=== PATIENT | female | born 1935 | race Caucasian/White ===

== ENCOUNTER 2017-06-26 18:14 | Emergency (ER) | payer BC ==
[~2017-06-26 18:14] MED LIST: OMEP40CA37 PO
--- NOTE | 2017-06-26 18:21 | NUR ---
CALLED TO TRIAGE,NO ANSWER
--- NOTE | 2017-06-26 19:00 | NUR ---
PT BIB SELF, C/O COUGH X3 WEEKS AND WORSENING SOB OVER THE LAST FEW DAYS. PT REPORTS SHE FEELS LIKE SHE CANNOT COUGH HARD ENOUGH TO CLEAR THE SPUTUM. WHEN COUGH IS PRODUCTIVE, SPUTUM IS WHITE. RESP APPEARS EVEN UNLABORED. SKIN WARM DRY. ALSO C/O MODERATE BACK PAIN. AMBULATORY STEADY GAIT. IN ER BED 12 IN NO ACUTE DISTRESS.
--- NOTE | 2017-06-26 19:10 | NUR ---
Viviana castellanos in [facility] - 06/26/17 at 1910 by ALIZA REPORT STEVE FROM SUNDAR HUFFMAN FOR [facility].
--- NOTE | 2017-06-26 19:10 | NUR ---
REPORT REC'D FROM SUNDAR HUFFMAN FOR [facility].
--- NOTE | 2017-06-26 19:29 | NUR ---
Brent VELAZQUEZ, [facility]- AT THE BEDSIDE SPEAKING TO THE PT.
--- NOTE | 2017-06-26 19:59 | NUR ---
[employer] AID INSTRUCTOR IS AT THE BEDSIDE FOR BLOOD DRAW.
[2017-06-26] MEDS ORDERED: ALBUTEROL FS 2.5 MG/3 ML VIAL.NEB NEB ONE (20:00)
[2017-06-26] MEDS ORDERED: ALBUTEROL FS 2.5 MG/3 ML VIAL.NEB ONE (20:02)
[2017-06-26 20:04] LABS: BASOPHILS % (AUTO) 0.6 % (0.0-2.0); EOSINOPHILS % (AUTO) 4.4 % (0.0-6.0); HEMATOCRIT 34 % (33-45); HEMOGLOBIN 11.8 g/dL (11.5-14.8); LYMPHOCYTES # (AUTO) 1.1 /CMM (0.8-4.8); LYMPHOCYTES % (AUTO) 19.1 % (20.0-44.0); MEAN CORPUSCULAR HGB CONC 34 g/dl (31.0-36.0); MEAN CORPUSCULAR VOLUME 93 fL (82-100); MONOCYTES # (AUTO) 0.3 /CMM (0.1-1.30); MONOCYTES % (AUTO) 5.5 % (2.0-12.0); NEUTROPHILS # (AUTO) 4.2 /CMM (1.8-8.9); NEUTROPHILS % (AUTO) 70.4 % (43.0-81.0); PLATELET COUNT (AUTO) 158 /CMM (150-450); RDW COEFFICIENT OF VARIATION 14.2 (11.5-15.0); RED BLOOD CELL COUNT(AUTO) 3.72 MIL/uL (4.0-5.2); WHITE BLOOD COUNT (AUTO) 5.9 K/uL (4.3-11.0)
[2017-06-26 20:16] LABS: CARBON DIOXIDE 28 mmol/L (21-32); CHLORIDE 106 mmol/L (98-107); CREATININE 0.7 mg/dL (0.6-1.3); GLUCOSE 99 mg/dL (74-106); POTASSIUM 4.1 mmol/L (3.5-5.1); SODIUM SERUM 141 mmol/L (136-145); UREA NITROGEN, BLOOD 24 mg/dL (7-18)
[2017-06-26 20:20] LABS: INR 0.94 (0.85-1.15)
[2017-06-26 20:25] LABS: TROPONIN I < 0.017 ng/mL (0.00-0.056)
--- NOTE | 2017-06-26 21:35 | NUR ---
Patient discharged to home in stable condition. Written and verbal after care instructions given. Patient verbalizes understanding of instruction AND RX. PT AMBULATED OUT WITH A STEADY GAIT. VSS. PT'S SON IS PICKING PT UP.
[2017-06-26 21:48] VITALS: BP 105/68
== END 2017-06-26 21:49 | disposition home or self-care (01) ==
LOC: ER 18:16
DX: H61.22 Impacted cerumen, left ear (principal); J40 Bronchitis, not specified as acute or chronic; H91.92 Unspecified hearing loss, left ear; Z88.0 Allergy status to penicillin
CPT/HCPCS: 36415; 69209; 71045; 80048; 84484; 85025; 85378; 85730; 93005; 94640; 99285; A4606; Z7610

== ENCOUNTER 2022-03-26 15:43 | Emergency (ER) | payer BC ==
[~2022-03-26] VITALS: Ht 154.9 cm; Wt 51.3 kg
[~2022-03-26 15:43] MED LIST changes: +OMEP40CA21 PO; -OMEP40CA37 PO
--- NOTE | 2022-03-26 16:30 | NUR ---
BIBSON C/O LEFT UPPER EXTREMITY SWELLING, CAST IN PLACE FOR WRIST FRACTURE. AMBULATORY, PLACED IN BED, IN PAIN 10/10 PS
[2022-03-26] MEDS ORDERED: HYDROCODONE/APAP 5/325MG TABLET ONE (17:08)
--- NOTE | 2022-03-26 17:15 | NUR ---
DOP. U/S TECH AT BEDSIDE.
[2022-03-26] MEDS ORDERED: HYDROCODONE/APAP 5/325MG TABLET PO ONE (17:30)
[2022-03-26] MEDS ORDERED: IBUP-1953 PO (19:03)
--- NOTE | 2022-03-26 19:15 | NUR ---
Patient discharged to home in stable condition. Written and verbal after care instructions given. Patient verbalizes understanding of instruction.
[2022-03-26 20:25] VITALS: BP 125/75
== END 2022-03-26 19:15 | disposition home or self-care (01) ==
LOC: ER 15:50
DX: S62.102D Fracture of unspecified carpal bone, left wrist, subsequent encounter for fracture with routine healing (principal); M70.22 Olecranon bursitis, left elbow; M79.602 Pain in left arm; I49.9 Cardiac arrhythmia, unspecified; Z88.0 Allergy status to penicillin; Z79.899 Other long term (current) drug therapy; X58.XXXD Exposure to other specified factors, subsequent encounter; Y93.89 Activity, other specified
CPT/HCPCS: 93971-TC

== ENCOUNTER 2023-04-15 17:52 | Emergency (ER) | payer BC ==
[~2023-04-15] VITALS: Ht 152.4 cm; Wt 45.8 kg
[~2023-04-15 17:52] MED LIST changes: +IBUP-1953 PO
[2023-04-15 19:39] VITALS: BP 105/71; TEMP 98.4; O2SAT 100
== END 2023-04-15 19:39 | disposition home or self-care (01) ==
LOC: ER 17:57
DX: M54.2 Cervicalgia (principal); R07.2 Precordial pain; Z88.0 Allergy status to penicillin
CPT/HCPCS: 71045-TC; 72040-TC

== ENCOUNTER 2024-02-25 15:12 | Inpatient (IN) | payer BC ==
[~2024-02-25] VITALS: Ht 152.4 cm; Wt 45.4 kg
[2024-02-25 15:52] LABS: BASOPHILS % (AUTO) 0.3 % (0.0-2.0); EOSINOPHILS # (AUTO) 0.3 K/uL (0.0-0.7); EOSINOPHILS % (AUTO) 3.9 % (0.0-6.0); HEMATOCRIT 33 % (33-45); HEMOGLOBIN 11.1 g/dL (11.5-14.8); LYMPHOCYTES # (AUTO) 0.4 K/uL (0.8-4.8); LYMPHOCYTES % (AUTO) 4.3 % (20.0-44.0); MEAN CORPUSCULAR HEMOGLOBIN 32 PG (26.0-33.0); MEAN CORPUSCULAR HGB CONC 33 g/dl (31.0-36.0); MEAN CORPUSCULAR VOLUME 95 fL (82-100); MONOCYTES # (AUTO) 0.7 K/uL (0.1-1.30); MONOCYTES % (AUTO) 7.9 % (2.0-12.0); NEUTROPHILS # (AUTO) 6.9 K/uL (1.8-8.9); NEUTROPHILS % (AUTO) 83.6 % (43.0-81.0); PLATELET COUNT (AUTO) 113 K/uL (150-450); RED CELL DISTRIBUTION WIDTH 14.7 % (11.5-15.0); WHITE BLOOD COUNT (AUTO) 8.3 K/uL (4.3-11.0)
[2024-02-25 16:13] LABS: INR 0.99 (0.91-1.10); PARTIAL THROMBOPLASTIN TIME 27.6 SEC (24.3-34.3); PROTHROMBIN TIME 10.5 SECS (9.2-11.1)
[2024-02-25 16:28] LABS: CALCIUM, SERUM 9.2 mg/dL (8.5-10.1); CARBON DIOXIDE 29 mmol/L (21-32); CHLORIDE 109 mmol/L (98-107); CREATININE 0.8 mg/dL (0.6-1.3); GLUCOSE 111 mg/dL (74-106); POTASSIUM 3.9 mmol/L (3.5-5.1); SODIUM SERUM 145 mmol/L (136-145); UREA NITROGEN, BLOOD 22 mg/dL (7-18)
[2024-02-25 16:35] LABS: ALANINE AMINOTRANSFERASE 30 U/L (12-78); ALBUMIN 3.4 g/dL (3.4-5.0); ALKALINE PHOSPHATASE 72 U/L (46-116); ASPARTATE AMINOTRANSFERASE 37 U/L (15-37); BILIRUBIN,DIRECT 0.2 mg/dL (0.0-0.2); BILIRUBIN,TOTAL 0.8 mg/dL (0.2-1.0); TOTAL PROTEIN, SERUM 6.3 g/dL (6.4-8.2)
[2024-02-25] MEDS ORDERED: METO25TA20 PO (17:23)
[2024-02-25] MEDS ORDERED: ONDANSETRON HCL/PF 4 MG/2 ML VIAL IVP PRN (17:30)
[2024-02-25] MEDS ORDERED: hydrALAZINE HCL IV 20 MG VIAL IV PRN (17:30)
[2024-02-25 20:00] VITALS: BP 117/75; TEMP 97.6; O2SAT 95
[2024-02-25 20:30] VITALS: BP 117/75; TEMP 97.6; O2SAT 95
[2024-02-26] MEDS: MORPHINE SULFATE INJ 2 MG/ML DISP.SYRIN IV PRN (05:44)
[2024-02-26 06:55] LABS: BASOPHILS % (AUTO) 0.4 % (0.0-2.0); EOSINOPHILS # (AUTO) 0.7 K/uL (0.0-0.7); HEMATOCRIT 31 % (33-45); HEMOGLOBIN 10.3 g/dL (11.5-14.8); LYMPHOCYTES # (AUTO) 0.6 K/uL (0.8-4.8); LYMPHOCYTES % (AUTO) 8.8 % (20.0-44.0); MEAN CORPUSCULAR HEMOGLOBIN 31 PG (26.0-33.0); MEAN CORPUSCULAR HGB CONC 34 g/dl (31.0-36.0); MEAN CORPUSCULAR VOLUME 93 fL (82-100); MONOCYTES # (AUTO) 0.5 K/uL (0.1-1.30); MONOCYTES % (AUTO) 8.2 % (2.0-12.0); NEUTROPHILS # (AUTO) 4.6 K/uL (1.8-8.9); NEUTROPHILS % (AUTO) 71.6 % (43.0-81.0); PLATELET COUNT (AUTO) 116 K/uL (150-450); RED BLOOD CELL COUNT(AUTO) 3.28 MIL/uL (4.0-5.2); RED CELL DISTRIBUTION WIDTH 14.5 % (11.5-15.0); WHITE BLOOD COUNT (AUTO) 6.5 K/uL (4.3-11.0)
[2024-02-26 07:00] VITALS: BP 107/68; TEMP 97.5; O2SAT 98
[2024-02-26 07:14] LABS: ALANINE AMINOTRANSFERASE 27 U/L (12-78); ALBUMIN 2.9 g/dL (3.4-5.0); ALKALINE PHOSPHATASE 66 U/L (46-116); ASPARTATE AMINOTRANSFERASE 31 U/L (15-37); BILIRUBIN,TOTAL 0.7 mg/dL (0.2-1.0); CALCIUM, SERUM 8.4 mg/dL (8.5-10.1); CARBON DIOXIDE 28 mmol/L (21-32); CHLORIDE 111 mmol/L (98-107); CREATININE 0.7 mg/dL (0.6-1.3); GLUCOSE 90 mg/dL (74-106); MAGNESIUM 2.2 mg/dL (1.8-2.4); PHOSPHORUS 3.7 mg/dL (2.5-4.9); POTASSIUM 3.9 mmol/L (3.5-5.1); SODIUM SERUM 145 mmol/L (136-145); TOTAL PROTEIN, SERUM 5.7 g/dL (6.4-8.2); UREA NITROGEN, BLOOD 21 mg/dL (7-18)
[2024-02-26] MEDS: IV NS 0.9% 1,000 ML IV PRN (08:39)
[2024-02-26 09:43] LABS: THYROID STIMULATING HORMONE 3.56 uIU/mL (0.358-3.74)
[2024-02-26] MEDS ORDERED: VANCOMYCIN 1 GM VIAL ONE (14:31)
[2024-02-26] MEDS ORDERED: ANESTHESIA TRAY IN PYXIS 1 EA TRAY MC ONE (14:31)
[2024-02-26] MEDS ORDERED: BUPIVACAINE 0.5 % PF 150 MG/30 ML VIAL ONE (14:31)
[2024-02-26] MEDS ORDERED: POLYMYXIN B SULFATE 0 UNITS ONE (14:31)
[2024-02-26] MEDS ORDERED: BUPIVACAINE 0.25% 75 MG/30 ML VIAL ONE (14:32)
[2024-02-26] MEDS ORDERED: CELLULOSE,OXIDIZED 1 EA PACK MC ONE (14:32)
[2024-02-26 15:44] VITALS: BP 114/69; TEMP 98.1; O2SAT 96
[2024-02-26] MEDS ORDERED: TRANEXAMIC ACID 1,000 MG/10 ML VIAL ONE (15:52)
[2024-02-26] MEDS ORDERED: CLINDAMYCIN 900 MG/6 ML VIAL ONE (15:52)
[2024-02-26 16:00] VITALS: BP 114/69; TEMP 98.1; O2SAT 96
[2024-02-26] MEDS ORDERED: FENTANYL PF 100MCG/2ML AMPUL ONE (16:00)
[2024-02-26 20:00] VITALS: BP 91/57; TEMP 97.6; O2SAT 98
[2024-02-26] MEDS ORDERED: HEPARIN SODIUM, PORCINE 5000 UNITS/1 ML VIAL SQ SCH (21:00)
[2024-02-26] MEDS: CLINDAMYCIN 900 MG in IV D5W 50 ML IV SCH (21:23)
[2024-02-27 07:30] VITALS: BP 112/73; TEMP 98.2; O2SAT 100
[2024-02-27] MEDS: ENOXAPARIN SODIUM 40 MG/0.4 ML DISP.SYRIN SQ SCH (08:59)
[2024-02-27 10:23] LABS: BASOPHILS % (AUTO) 0.2 % (0.0-2.0); EOSINOPHILS % (AUTO) 0.2 % (0.0-6.0); HEMATOCRIT 29 % (33-45); HEMOGLOBIN 9.8 g/dL (11.5-14.8); LYMPHOCYTES # (AUTO) 0.2 K/uL (0.8-4.8); LYMPHOCYTES % (AUTO) 2.7 % (20.0-44.0); MEAN CORPUSCULAR HEMOGLOBIN 32 PG (26.0-33.0); MEAN CORPUSCULAR HGB CONC 34 g/dl (31.0-36.0); MEAN CORPUSCULAR VOLUME 94 fL (82-100); MONOCYTES # (AUTO) 0.8 K/uL (0.1-1.30); MONOCYTES % (AUTO) 9.4 % (2.0-12.0); NEUTROPHILS # (AUTO) 7.3 K/uL (1.8-8.9); NEUTROPHILS % (AUTO) 87.5 % (43.0-81.0); PLATELET COUNT (AUTO) 167 K/uL (150-450); RED BLOOD CELL COUNT(AUTO) 3.08 MIL/uL (4.0-5.2); RED CELL DISTRIBUTION WIDTH 14.6 % (11.5-15.0); WHITE BLOOD COUNT (AUTO) 8.3 K/uL (4.3-11.0)
[2024-02-27 10:45] LABS: CARBON DIOXIDE 23 mmol/L (21-32); CHLORIDE 111 mmol/L (98-107); CREATININE 0.9 mg/dL (0.6-1.3); GLUCOSE 158 mg/dL (74-106); POTASSIUM 4.3 mmol/L (3.5-5.1); SODIUM SERUM 143 mmol/L (136-145); UREA NITROGEN, BLOOD 23 mg/dL (7-18)
[2024-02-27 10:52] LABS: ALANINE AMINOTRANSFERASE 34 U/L (12-78); ALBUMIN 2.8 g/dL (3.4-5.0); ALKALINE PHOSPHATASE 54 U/L (46-116); ASPARTATE AMINOTRANSFERASE 43 U/L (15-37); BILIRUBIN,TOTAL 0.9 mg/dL (0.2-1.0); MAGNESIUM 1.9 mg/dL (1.8-2.4); PHOSPHORUS 4.7 mg/dL (2.5-4.9); TOTAL PROTEIN, SERUM 5.6 g/dL (6.4-8.2)
[2024-02-27] MEDS: SOD FERRIC GLUC 125 MG in IV NS 0.9% 100 ML IV SCH (13:46)
[2024-02-27] MEDS ORDERED: OXYC-117 PO (14:31)
[2024-02-27] MEDS ORDERED: ENOX40DI SQ (14:31)
[2024-02-27] MEDS: ACETAMINOPHEN 325 MG TABLET PO PRN (14:36)
[2024-02-27 16:00] VITALS: BP 103/65; TEMP 97.7; O2SAT 94
[2024-02-28 07:55] LABS: PHOSPHORUS 2.7 mg/dL (2.5-4.9)
[2024-02-28 16:00] VITALS: BP 144/90; TEMP 98.2; O2SAT 97
[2024-02-28 20:00] VITALS: BP 108/69; TEMP 97.8; O2SAT 96
[2024-02-29 08:00] VITALS: BP 102/58; TEMP 97.9; O2SAT 96
[2024-02-29 16:00] VITALS: BP 99/58; TEMP 98.2; O2SAT 94
[2024-02-29 20:00] VITALS: BP 99/63; TEMP 97.7; O2SAT 96
[2024-03-01 08:00] VITALS: BP 110/62; TEMP 99; O2SAT 94
[2024-03-01 10:02] VITALS: BP 110/62; TEMP 98.1; O2SAT 94
[2024-03-01 16:00] VITALS: BP 100/68; TEMP 97.8; O2SAT 94
[2024-03-01 20:00] VITALS: BP 103/71; TEMP 98.1; O2SAT 95
[2024-03-02 08:00] VITALS: BP 100/61; TEMP 98.6; O2SAT 98
[2024-03-02 16:00] VITALS: BP 112/64; TEMP 98.4; O2SAT 97
[2024-03-02 20:33] VITALS: BP 106/66; TEMP 98.1; O2SAT 97
[2024-03-03 06:37] LABS: BASOPHILS % (AUTO) 0.4 % (0.0-2.0); EOSINOPHILS # (AUTO) 0.4 K/uL (0.0-0.7); EOSINOPHILS % (AUTO) 5.5 % (0.0-6.0); HEMATOCRIT 26 % (33-45); HEMOGLOBIN 8.7 g/dL (11.5-14.8); LYMPHOCYTES # (AUTO) 0.7 K/uL (0.8-4.8); LYMPHOCYTES % (AUTO) 10.2 % (20.0-44.0); MEAN CORPUSCULAR HEMOGLOBIN 32 PG (26.0-33.0); MEAN CORPUSCULAR HGB CONC 34 g/dl (31.0-36.0); MEAN CORPUSCULAR VOLUME 93 fL (82-100); MONOCYTES # (AUTO) 0.7 K/uL (0.1-1.30); NEUTROPHILS % (AUTO) 73.9 % (43.0-81.0); PLATELET COUNT (AUTO) 327 K/uL (150-450); RED BLOOD CELL COUNT(AUTO) 2.76 MIL/uL (4.0-5.2); RED CELL DISTRIBUTION WIDTH 14.3 % (11.5-15.0); WHITE BLOOD COUNT (AUTO) 6.8 K/uL (4.3-11.0)
[2024-03-03 06:52] LABS: CALCIUM, SERUM 8.5 mg/dL (8.5-10.1); CARBON DIOXIDE 31 mmol/L (21-32); CHLORIDE 106 mmol/L (98-107); CREATININE 0.6 mg/dL (0.6-1.3); GLUCOSE 98 mg/dL (74-106); POTASSIUM 3.8 mmol/L (3.5-5.1); SODIUM SERUM 142 mmol/L (136-145); UREA NITROGEN, BLOOD 13 mg/dL (7-18)
[2024-03-03 08:00] VITALS: BP 103/61; TEMP 99; O2SAT 97
[2024-03-03] MEDS ORDERED: ENOX40DI SQ (13:20)
[2024-03-03] MEDS ORDERED: OXYC-117 PO (13:20)
[2024-03-03] MEDS ORDERED: ONDA4TAB5 PO (13:20)
[2024-03-03] MEDS ORDERED: ACET325C7 PO (13:20)
[2024-03-03 16:00] VITALS: BP 104/66; TEMP 98.1; O2SAT 92
[2024-03-03 20:00] VITALS: BP 94/55; TEMP 98.2; O2SAT 99
[2024-03-04] MEDS: METOPROLOL TARTRATE 25 MG TABLET PO PRN (14:19)
[2024-03-04 20:00] VITALS: BP 110/65; TEMP 97.5; O2SAT 98
[2024-03-04 20:30] VITALS: BP 115/98; TEMP 98; O2SAT 98
[2024-03-05 17:01] VITALS: BP 106/72; TEMP 98.2; O2SAT 97
== END 2024-03-05 18:57 | DRG 522 ==
LOC: ER 15:26 → MED 17:43
PROVIDERS: ADMIT Internal Medicine; ATTEND Nurse Practitioner Acute Care
PROC: 0SRS0J9 Replacement of Left Hip Joint, Femoral Surface with Synthetic Substitute, Cemented, Open Approach (ICD-10-PCS; principal; 2024-02-26)
DX: S72.002A Fracture of unspecified part of neck of left femur, initial encounter for closed fracture (principal); W01.0XXA Fall on same level from slipping, tripping and stumbling without subsequent striking against object, initial encounter; D64.9 Anemia, unspecified; I10 Essential (primary) hypertension; D69.6 Thrombocytopenia, unspecified; Z88.0 Allergy status to penicillin; D50.9 Iron deficiency anemia, unspecified; M81.0 Age-related osteoporosis without current pathological fracture; Y93.9 Activity, unspecified; Y92.009 Unspecified place in unspecified non-institutional (private) residence as the place of occurrence of the external cause
CPT/HCPCS: 36415; 71045-TC; 72170-TC; 73020; 73552; 73560-TC; 80048-TC; 80053-TC; 80061-TC; 80076-TC; 82728-TC; 82962-TC; 83540-TC; 83735-TC; 84100-TC; 84439-TC; 84443-TC; 85025-TC; 85730-TC; 86850-TC; 87081-TC; 93307-TC; 97110-TC; 97112-TC; 97116-TC; 97530-TC; 97535-TC; A4217; A4223; A6209; A6253; C1713; C1776; G0378; J0330; J1100; J1650; J2270; J2405; J2704; J2765; J2916; J3010; J3370; J3490; J7030; J7060

== ENCOUNTER 2024-05-19 06:07 | Emergency (ER) | payer BC ==
[~2024-05-19] VITALS: Ht 152.4 cm; Wt 45.4 kg
[~2024-05-19 06:07] MED LIST changes: +ACET325C7 PO; +ENOX40DI SQ; -IBUP-1953 PO; +METO25TA20 PO; -OMEP40CA21 PO; +ONDA4TAB5 PO; +OXYC-117 PO
[2024-05-19 08:12] LABS: BASOPHILS % (AUTO) 0.3 % (0.0-2.0); EOSINOPHILS # (AUTO) 0.1 K/uL (0.0-0.7); EOSINOPHILS % (AUTO) 1.6 % (0.0-6.0); HEMATOCRIT 37 % (33-45); HEMOGLOBIN 12.3 g/dL (11.5-14.8); INR 1.04 (0.91-1.10); LYMPHOCYTES # (AUTO) 0.8 K/uL (0.8-4.8); LYMPHOCYTES % (AUTO) 9.9 % (20.0-44.0); MEAN CORPUSCULAR HEMOGLOBIN 32 PG (26.0-33.0); MEAN CORPUSCULAR HGB CONC 34 g/dl (31.0-36.0); MEAN CORPUSCULAR VOLUME 94 fL (82-100); MONOCYTES # (AUTO) 0.6 K/uL (0.1-1.30); MONOCYTES % (AUTO) 7.2 % (2.0-12.0); NEUTROPHILS # (AUTO) 6.4 K/uL (1.8-8.9); PARTIAL THROMBOPLASTIN TIME 25.9 SEC (24.3-34.3); PLATELET COUNT (AUTO) 151 K/uL (150-450); RED BLOOD CELL COUNT(AUTO) 3.88 MIL/uL (4.0-5.2); RED CELL DISTRIBUTION WIDTH 14.7 % (11.5-15.0); WHITE BLOOD COUNT (AUTO) 7.9 K/uL (4.3-11.0)
[2024-05-19 08:26] LABS: CALCIUM, SERUM 9.3 mg/dL (8.5-10.1); CREATININE 0.6 mg/dL (0.6-1.3); POTASSIUM 4.1 mmol/L (3.5-5.1)
[2024-05-19 09:15] VITALS: BP 125/61; TEMP 97.6; O2SAT 98
[2024-05-19] MEDS ORDERED: MAG HYDROX/AL HYDROX/SIMETH 30 ML UDC PO PRN (10:00)
[2024-05-19] MEDS ORDERED: ZOLPIDEM TARTRATE 5 MG TABLET PO PRN (10:00)
[2024-05-19] MEDS ORDERED: ACETAMINOPHEN 325 MG TABLET PO PRN (10:00)
[2024-05-19] MEDS ORDERED: Z GUARD REMEDY 4 OZ OINT TP PRN (10:00)
[2024-05-19] MEDS ORDERED: ONDANSETRON HCL/PF 4 MG/2 ML VIAL IVP PRN (10:00)
[2024-05-19] MEDS ORDERED: MAGNESIUM HYDROXIDE 30 ML UDC PO PRN (10:00)
[2024-05-19] MEDS ORDERED: IV NS 0.9% 1,000 ML IV PRN (10:00)
== END 2024-05-19 09:15 | disposition left against medical advice (07) ==
LOC: ER 06:10
DX: S06.33AA Contusion and laceration of cerebrum, unspecified, with loss of consciousness status unknown, initial encounter (principal); Z86.73 Personal history of transient ischemic attack (TIA), and cerebral infarction without residual deficits; Z88.0 Allergy status to penicillin; W01.0XXA Fall on same level from slipping, tripping and stumbling without subsequent striking against object, initial encounter; Y93.89 Activity, other specified; Y92.89 Other specified places as the place of occurrence of the external cause; Y99.8 Other external cause status
CPT/HCPCS: 36415; 70450-TC; 71045-TC; 72125-TC; 80048-TC; 84443-TC; 84484-TC; 85025-TC; 85730-TC; 86850-TC